=== PATIENT | male | born 1950 | race Caucasian/White ===

== ENCOUNTER 2019-12-25 09:55 | Outpatient (CLI) | payer OTHER, SELFPAY ==
--- NOTE | 2019-12-25 | PFT_ITS ---
PULMONARY FUNCTION TEST REPORT Patient - Leno Alcantara DATE OF SERVICE December 25, 2019 REQUESTING PROVIDER Shahnaz Huang M.D. INTERPRETATION OF STUDY Spirometry shows mild obstructive airways disease. No bronchodilator response. LUNG VOLUMES - Lung volumes show no evidence of restriction. DIFFUSION CAPACITY- Mildly reduced even when corrected to alveolar volume. AIRWAY RESISTANCE - Normal. IMPRESSION Mild obstructive airways disease. No bronchodilator response. This is associated with mild diffusion defect. Clinical correlation recommended. Afsaneh Bauer M.D. Miguel DD - 12/28/19 Methacholine challenge test DATE OF SERVICE December 25, 2019 After normal spirometry showing mild obstructive airways disease, Methacholine challenge testing was carried out, up to a Methacholine concentration of 4 mg per ml at which point the patient had a 22% drop in FEV1. IMPRESSION Positive Methacholine challenge test, clinical correlation recommended. Afsaneh Bauer M.D. Miguel 12/28/19
[2019-12-25] MEDS: Inhaler, Assist Device 1 EACH MC (14:33)
[2019-12-25] MEDS: Albuterol HFA 18 GM 200 PUFF INH IH (14:33)
[2019-12-25] MEDS: Methacholine 100 MG VIAL IH (14:34)
== END 2019-12-25 10:15 ==
PROVIDERS: PCP Family Medicine; Visit Provider Family Medicine
DX: J44.9 Chronic obstructive pulmonary disease, unspecified (principal); R06.09 Other forms of dyspnea
CPT/HCPCS: 94060; 94726; 94729; 95070; 94010; J7674

== ENCOUNTER 2020-01-01 00:31 | Outpatient (CLI) | payer OTHER, SELFPAY ==
--- NOTE | 2020-01-01 08:00 | ETT_ITS ---
APPROVED REPORT Exam: Exercise Treadmill Patient Location: Out-Patient Room/Bed: Stress Nurse: Belkis Campos RN BMI: 25.62 Baseline Rhythm: Sinus Bradycardia Indications: Patient testing today for dyspnea on exertion. Medical History Cardiac Medications: None, Allergies: No known drug allergies Cardiac Risk Factors: FHX of CAD, HTN, Asthma, COPD Previous Cardiac Procedures: None Pretest Chest Pain Characteristics: None Exercise History: Physically active Physical Disabilities: None Lung Sounds: Clear to auscultation Heart Sounds: Regular Stress Test Details Test: Exercise stress testing was performed using a Gunner protocol. Rest Stress HR Resting HR Supine: 57 bpm Max Heart Rate (APMHR): 151 bpm Resting HR Standin bpm Target HR (85% APMHR): 128 bpm Max HR Achieved: 154 bpm % of APMHR: 101 HR response to stress: Normal HR response to stress Comment: Evidence of early repolarization. BP Resting BP Supine: 130/90 mmHg Resting BP Standin/94 mmHg Max BP: 190/86 mmHg BP response to stress: Normal blood pressure response to stress. ECG Resting ECG: Sinus Bradycardia Ectopy: No ectopy noted. Comment: There is evidence of early repolarization throughout the precordium and inferior leads. Stress ECG: Sinus Tachycardia ST Change: Normal Arrhythmia: None Recovery ECG: Sinus Rhythm Recovery ST Change: Normal Comment: Noted occasional PAC's and 4 beat run bigeminy in recovery period. Clinical Reason for Termination: Fatigue Stress Symptoms: Dyspnea Exercise duration: 10 min00 sec Highest Stage Reached: Stage 4: 4.2 mph at 16% grade. Exercise capacity: 11.81 METs Functional Capacity: Above average capacity Stress ECG Conclusion 1. Patient exercised for 10 minutes (12 METS). Pressure product was 27,000. 2. Early repolarization abnormality at baseline may decrease the sensitivity of this test. 3. The patient had no symptoms suggestive of ischemia during exercise. 4. The Holley Score ( 10) estimates an annual cardiovascular mortality of 0% and a five year survival o f 96%. Using the Holley Score there is a low probability of any angiographic coronary disease. Protocol Used: Gunner Protocol Stress Test Summary STAGE Time (mins) Speed (mph) Grade (%) HR BP SYMPTOMS METS Supine 57 130/90 Standing 63 134/94 1 3 1.7 10 94 160/100 4.6 2 6 2.5 12 121 170/90 7 3 9 3.4 14 143 178/90 10.2 4 12 4.2 16 12.9 5 15 5.0 18 17.2 1 min recovery 117 170/92 3 min recovery 78 190/86 6 min recovery 76 158/96 9 min recovery 74 150/94 12 min recovery
== END 2020-01-01 00:51 ==
PROVIDERS: PCP Family Medicine; Visit Provider Family Medicine
DX: R06.09 Other forms of dyspnea (principal); I10 Essential (primary) hypertension; J44.9 Chronic obstructive pulmonary disease, unspecified; Z82.49 Family history of ischemic heart disease and other diseases of the circulatory system
CPT/HCPCS: 93017